=== PATIENT | female | born 1975 | race Hispanic/Latino ===

== ENCOUNTER 2022-09-28 15:45 | Emergency (ER) | payer OTHER ==
[~2022-09-28] VITALS: Ht 154.9 cm; Wt 74.8 kg
[2022-09-28 15:47] VITALS: BP 121/77; PULSE 81; RESP 18
[2022-09-28 16:20] LABS: INFLUENZA TYPE A Negative For Type A (NEGATIVE); INFLUENZA TYPE B Negative For Type B (NEGATIVE)
[2022-09-28 16:25] LABS: SARS-CoV-2, RNA, NAAT NEGATIVE SARS CoV-2 (NEGATIVE)
[2022-09-28 16:57] LABS: HCG,QUALITATIVE URINE NEGATIVE (NEGATIVE)
[2022-09-28 16:59] LABS: APPEARANCE,URINE CLOUDY (CLEAR); BILIRUBIN,URINE NEGATIVE (NEGATIVE); GLUCOSE, URINE (UA) NEGATIVE (NEGATIVE); KETONES,URINE >=80 mg/dL (NEGATIVE); LEUKOCYTE ESTERASE ,URINE 25 Leu/uL (NEGATIVE); NITRATE,URINE NEGATIVE (NEGATIVE); OCCULT BLOOD,URINE LARGE (NEGATIVE); PH,URINE 5.5 (5.0-8.0); PROTEIN,URINE 70 mg/dL (NEGATIVE); UROBILINOGEN,URINE 0.2 mg/dL (0.2-1.0)
[2022-09-28 17:00] LABS: ADD UA MICROSCOPIC YES; COLOR,URINE RED (YELLOW)
[2022-09-28] MEDS ORDERED: CYCLOBENZAPRINE HCL 10 MG TABLET PO ONE (17:00)
[2022-09-28] MEDS ORDERED: KETOROLAC 30MG VIAL (30MG/ML) IM ONE (17:00)
[2022-09-28 17:01] LABS: BACTERIA,URINE RARE /HPF (None Seen); MUCUS,URINE MOD LPF (None Seen); RBC,URINE TNTC /HPF (0-1); SQUAMOUS EPITHELIAL CELL,UR FEW /HPF (0-2)
[2022-09-28] MEDS ORDERED: CEPH500B PO (17:03)
[2022-09-28] MEDS ORDERED: CYCL10TA16 PO (17:03)
== END 2022-09-28 17:19 | disposition home or self-care (01) ==
LOC: EDH 15:45
DX: S16.1XXA Strain of muscle, fascia and tendon at neck level, initial encounter (principal); N39.0 Urinary tract infection, site not specified; Z20.822 Contact with and (suspected) exposure to COVID-19; Z90.49 Acquired absence of other specified parts of digestive tract; Z79.899 Other long term (current) drug therapy; X58.XXXA Exposure to other specified factors, initial encounter; Y93.89 Activity, other specified; Y92.89 Other specified places as the place of occurrence of the external cause; Y99.8 Other external cause status
CPT/HCPCS: 99283; 87635; 87088; 87804 ×2; 81001; 81025; 96372; C9803; J1885